=== PATIENT | female | born 2000 | race Two or more races ===

== ENCOUNTER → 2022-04-18 | Outpatient (CLI) | payer OTHER | LOC: M RAD 14:57 | PROVIDERS: ATTEND Physician Assistant Medical | DX: M25.551 Pain in right hip (principal); M25.552 Pain in left hip ==

== ENCOUNTER → 2025-07-10 | Outpatient (REF) | payer OTHER | LOC: M SFHCWAGY 14:55 | PROVIDERS: ATTEND Obstetrics & Gynecology | DX: Z36.85 Encounter for antenatal screening for Streptococcus B (principal); Z3A.36 36 weeks gestation of pregnancy ==

== ENCOUNTER → 2025-08-19 | Outpatient (REF) | payer OTHER ==
[~2025-08-19] MED LIST: PRENTAB9 PO
[2025-08-19 18:36] LABS: APPEARANCE, URINE HAZY (CLEAR); BACTERIA, URINE AUTO NEGATIVE (NEGATIVE); BILIRUBIN, URINE AUTO NEGATIVE (NEGATIVE); BLOOD, URINE BLOOD 1+ (NEGATIVE); GLUCOSE, URINE (UA) AUTO NEGATIVE (NEGATIVE); KETONE, URINE AUTO NEGATIVE (NEGATIVE); LEUKOCYTE ESTERASE, URINE AUTO 3+ (NEGATIVE); NITRITE, URINE AUTO NEGATIVE (NEGATIVE); PROTEIN, URINE AUTO NEGATIVE (NEGATIVE); RBC, URINE AUTO 9 /HPF (0-3); SPECIFIC GRAVITY URINE AUTO 1.012 (1.002-1.035); SQUAMOUS EPITHELIAL CELL UR AU 1 /HPF (0-6); UROBILINOGEN, URINE AUTO 0.2 mg/dL (0.0-2.0); WBC, URINE AUTO 159 /HPF (0-3)
== END ==
LOC: M PLALAB 13:52
PROVIDERS: ATTEND Specialist
DX: R30.0 Dysuria (principal)